=== PATIENT | female | born 1955 | race Caucasian/White ===

== ENCOUNTER 2020-11-18 13:06 | Emergency (ER) | payer OTHER, SELFPAY ==
--- NOTE | ~2020-11-18 | XR_ITS ---
EXAMINATION: XR knee RT min 4V EXAM DATE: 11/18/2020 14:04 INDICATION: No known recent injury provided at this time. Pain of the right knee. TECHNIQUE: Right knee frontal, crosstable lateral, orthogonal oblique projections for interpretation . There is no prior study for comparison. FINDINGS: No evidence osteochondral defect or joint body in the right knee joint. There is moderate amount of nonspecific joint fluid. This is most commonly sterile effusion. Possible underlying etio logies include reactive from arthritis, overuse, or trauma. Hemarthrosis and septic effusion are not radiographically excludable. Please clinically correlate. There are no acute fractures identified. No radiopaque foreign bodies identified. IMPRESSION: Moderate-sized right knee joint effusion. Reviewed, dictated and finalized at location B.
[2020-11-18 13:15] VITALS: BP 131/67; PULSE 77; RESP 20; TEMP 36.8; O2SAT 98
--- NOTE | 2020-11-18 13:30 | ED.LOWEXIN ---
HPI - Extremity Injury (Lower) General Chief Complaint: Extremity Injury, Lower Stated Complaint: right knee swollen and painful Time Seen by Provider: 11/18/20 13:31 Source: patient and RN notes reviewed Mode of arrival: ambulatory Limitations: no limitations History of Present Illness HPI Narrative: 65-year-old female presents with concern for right knee pain and swelling that started yesterday morning. She denies injury or trauma. Reports anterior pain and posterior pain. Reports tenderness in both areas. Reports at rest pain is only mild, pain is exacerbated with weightbearing. Reports she has been using a cane and a knee brace for mobility since the pain started. She denies any redness, warmth. Does report a history of gout. She denies open skin, lacerations, abrasions. Reports she has been taking Advil twice daily. MD complaint: other (Knee pain) Related Data Home Medications Medication Instructions Recorded Confirmed Cholesterol Medicine 11/18/20 Fish Oil 11/18/20 Gout Medicine 11/18/20 aspirin 325 mg PO DAILY 11/18/20 11/18/20 cetirizine [Zyrtec] 10 mg PO DAILY 11/18/20 11/18/20 lisinopril 11/18/20 venlafaxine 150 mg PO DAILY 11/18/20 11/18/20 Allergies Allergy/AdvReac Type Severity Reaction Status Date / Time No Known Allergies Allergy Verified 11/18/20 13:33 Review of Systems Review of Systems: CONSTITUTIONAL: Denies malaise, chills, sweats, or fever. SKIN: Denies redness, warmth, open skin MUSCULOSKELETAL: Reports right knee pain, tenderness, and swelling NEUROLOGIC: Denies numbness, weakness All systems reviewed & are unremarkable except as noted in HPI and below PMFSH Comments At time of signature, agree with nursing past medical, surgical, social and family history. There is no relevant family history pertinent to the presenting complaint Exam Narrative: GENERAL: Well-appearing, well-nourished, and in no acute distress. HEAD: Normocephalic, atraumatic. EYES: PERRLA, conjunctivae clear NECK: Supple. CHEST: Speaks in full sentences. No respiratory distress. HEART: Regular rate and rhythm. Normal and equal peripheral pulses. EXTREMITIES: Right knee has normal sensation, limited range of motion. Mild edema noted. No erythema or ecchymosis. 5/5 strength with knee flexion and extension. Normal sensation with sensitivity to light touch and pain. Anterior tenderness. No open wounds, no skin tenting, no devitalized tissue or atrophy, no trophic changes, no obvious deformity, alignment normal, nearby joints and structures intact. Distal pulses palpable and equal bilaterally, skin warm, dry, pink. Capillary refill less than 3 seconds. SKIN: Warm, dry, no rash. NEURO: Alert and oriented x3. PSYCH: Normal mood and affect Course Course Emergency Course: Patient is aware of diagnosis, understands and agrees to treatment plan. Anticipatory guidance given. Patient agrees to follow-up as directed and is aware of reasons to seek care at the emergency department. Portions of this record may have been created with voice recognition software Vital Signs Vital signs: Vital Signs Temperature 98.3 F 11/18/20 13:15 Pulse Rate 77 11/18/20 13:15 Respiratory Rate 20 11/18/20 13:15 Blood Pressure 131/67 11/18/20 13:15 Pulse Oximetry 98 11/18/20 13:15 Temperature 98.3 F 11/18/20 13:15 Pulse Rate 77 11/18/20 13:15 Respiratory Rate 20 11/18/20 13:15 Blood Pressure 131/67 11/18/20 13:15 Pulse Oximetry 98 11/18/20 13:15 Reviewed. MDM - Extremity Injury (Lower) MDM Narrative Medical decision making narrative: Patients pain is consistent with musculoskeletal etiology. No signs of neurological or vascular compromise on exam. Compartments and tissues are soft without signs of compartment syndrome. Pain is felt appropriate for further evaluation on an outpatient basis. Imaging Data My impression: Images reviewed, interpreted by radiologist, agree, see report. Radiologist's
--- NOTE | 2020-11-18 14:14 | PC.NURSE ---
PT TAKEN TO RADIOLOGY IN WHEELCHAIR
== END 2020-11-18 14:32 | disposition home or self-care (01) ==
PROVIDERS: Emergency Provider Nurse Practitioner
DX: M25.461 Effusion, right knee (principal); E78.00 Pure hypercholesterolemia, unspecified; I10 Essential (primary) hypertension; M10.9 Gout, unspecified
CPT/HCPCS: 73564; 99213; G0463